=== PATIENT | female | born 1970 | race Caucasian/White ===

== ENCOUNTER 2021-05-20 11:05 | Outpatient (CLI) | payer OTHER ==
--- NOTE | 2021-05-20 12:05 | XRAY Report ---
PROCEDURE: Wrist 4 View LT INDICATIONS: LEFT WRIST PAIN TECHNIQUE: 4 views of the wrist were acquired. COMPARISON: Correlation is made with the accompanying hand plain films, 05/20/2021. FINDINGS: Bones: No fractures or dislocations. No suspicious bony lesions. Mild degenerative changes are see n. Scaphoid view: No scaphoid fractures are seen. Soft tissues: No suspicious soft tissue calcifications. IMPRESSION: Mild degenerative changes, without a plain film explanation for the patient's presenting history of p ain. If it would be helpful for clinical management decision making, please consider a dedicated, schedule d wrist MRI for further evaluation (assuming that there is no contraindication). This should be perf ormed according to the arthrogram protocol, if there is strong clinical concern for a ligamentous abn ormality. Reviewed by: Jose Rafael Rockwell MD on 05/20/2021 11:04 AM [facility]IL[facility] Approved by: Jose Rafael Rockwell MD on 05/20/2021 11:04 AM [facility]IL[facility] Station ID: [id number]
--- NOTE | 2021-05-20 12:06 | XRAY Report ---
PROCEDURE: Hand 3 View LT INDICATIONS: LEFT HAND PAIN TECHNIQUE: 3 views of the hand(s) acquired. COMPARISON: Correlation is made with the accompanying wrist plain films. FINDINGS: Bones: No fractures or dislocations. No suspicious bony lesions. Mild, age-appropriate degenerativ e changes can be seen. Soft tissues: No suspicious soft tissue calcifications. IMPRESSION: Normal-appearing and plain films for age. Reviewed by: Jose Rafael Rockwell MD on 05/20/2021 11:04 AM [facility] Approved by: Jose Rafael Rockwell MD on 05/20/2021 11:04 AM [facility]IL[facility] Station ID: [id number]
== END 2021-05-20 23:59 | disposition home or self-care (01) ==
LOC: DI.S 11:05
PROVIDERS: ATTEND Physician Assistant Medical
DX: M19.032 Primary osteoarthritis, left wrist (principal); M19.042 Primary osteoarthritis, left hand